=== PATIENT | female | born 1985 | race Caucasian/White ===

== ENCOUNTER 2016-12-09 19:40 | Emergency (ER) | payer SELFPAY ==
[2016-12-09 20:03] VITALS: BP 125/81; PULSE 75; TEMP 98.2; BMI 27.1
--- NOTE | 2016-12-09 21:00 | PDOC ---
History of Present Illness - General History Source: Patient Exam Limitations: No Limitations - History of Present Illness Initial Comments: 12/09/16 21:25 The patient is a 31 year old female with no significant past medical history who presents to the ED for 2 weeks of right eye redness. Patient reports she developed redness to the right eye with associated right eye pain 2 weeks ago. States using eye drops with no improvement. Patient reports she does not wear contacts or glasses. Denies trauma to the area. Denies recent travels, oral contraceptives, or tobacco use. She also denies exposure to fluids. Patient states she developed a headache today. Denies any changes in vision or dizziness. The patient denies fever, chills, cough, SOB, chest pain, and palpitations. The patient denies abdominal pain, nausea, vomiting, and diarrhea. Allergies: NKDA Social History: No alcohol, tobacco, or drug use reported. Past Surgical History: None reported PCP: None reported <Brittnee Dietz - Last Filed: 12/09/16 21:25> - General History Source: Patient <Twin Wilkes - Last Filed: 12/10/16 00:12> - General Chief Complaint: Headache Stated Complaint: EYE PROBLEM Time Seen by Provider: 12/09/16 20:54 Past History <Brittnee Dietz - Last Filed: 12/09/16 21:25> - Past Medical History Asthma: No Cancer: No Cardiac Disorders: No Diabetes: No HTN: No Seizures: No Thyroid Disease: No Other medical history: Pt denies - Psycho/Social/Smoking Cessation Hx Anxiety: No Suicidal Ideation: No Smoking History: Never smoked Have you smoked in the past 12 months: No Information on smoking cessation initiated: No Hx Alcohol Use: No Drug/Substance Use Hx: No Substance Use Type: None Hx Substance Use Treatment: No <Twin Wilkes - Last Filed: 12/10/16 00:12> - Past Medical History Allergies/Adverse Reactions: Allergies Allergy/AdvReac Type Severity Reaction Status Date / Time No Known Allergies Allergy Verified 12/09/16 20:00 Home Medications: Ambulatory Orders NK [No Known Home Medication] 12/09/16 Review of Systems - Review of Systems Able to Perform ROS?: Yes Comments:: 12/09/16 21:25 CONSTITUTIONAL: Absent: fever, no chills, no fatigue EYES: +R eye pain and redness Absent: visual changes ENT: Absent: ear pain, no sore throat CARDIOVASCULAR: Absent: chest pain, no palpitations RESPIRATORY: Absent: cough, no SOB GI: Absent: abdominal pain, no nausea, no vomiting, no constipation, no diarrhea GENITOURINARY: Absent: dysuria, no frequency, no hematuria MUSCULOSKELETAL: Absent: back pain, no arthralgia, no myalgia SKIN: Absent: rash NEURO: +headache <Brittnee Dietz - Last Filed: 12/09/16 21:25> *Physical Exam - Vital Signs Last Vital Signs Temp Pulse Resp BP Pulse Ox 98.2 F 75 18 125/81 100 12/09/16 20:01 12/09/16 20:01 12/09/16 20:01 12/09/16 20:01 12/09/16 20:01 - Physical Exam Comments: 12/09/16 21:25 GENERAL: Well-appearing, well-nourished. No apparent distress. HEENT: Normocephalic, atraumatic. PERRL, EOM intact. Conjunctival injection to the right eye in the 6 o'clock to 8 oclock area. CARDIOVASCULAR: Normal S1, S2. Regular rate and rhythm. PULMONARY: Clear to auscultation bilaterally. ABDOMEN: Soft, non-distended, non-tender. EXTREMITIES: Normal ROM in all four extremities. No gross deformities. SKIN: Warm, dry. No rash NEUROLOGICAL: No focal neurological deficits. <Brittnee Dietz - Last Filed: 12/09/16 21:25> - Vital Signs Last Vital Signs Temp Pulse Resp BP Pulse Ox 98.2 F 75 18 125/81 100 12/09/16 20:01 12/09/16 20:01 12/09/16 20:01 12/09/16 20:01 12/09/16 20:01 <Twin Wilkes - Last Filed: 12/10/16 00:12> Medical Decision Making - Medical Decision Making 12/10/16 00:11 Dr. Wilkes: The scribe's documentation has been prepared under my direction and personally reviewed by me in its entirery. I confirm that the note above accurately reflects all work, treatment, procedures, and medical decision making performed by me. <Twin Wilkes Last Filed: 12/10/16 00:12> *DC/Admit/Observation/Transfer - Attestations Scribe Attestion: 12/09/16 21:25 Documentation prepared by Brittnee Dietz, acting as medical imaging director for Twin Wilkes MD/DO. <Brittnee Dietz - Last Filed: 12/09/16 21:25> - Discharge Dispostion Admit: No <Twin Wilkes - Last Filed: 12/10/16 00:12> Diagnosis at time of Disposition: Red eye - Discharge Dispostion Disposition: HOME Condition at time of disposition: Stable - Referrals Referrals: Torsten Hatfield [Staff Physician] - - Patient Instructions Printed Discharge Instructions: DI for Red Eye Additional Instructions: Please follow up with the doctor referred to you for further evaluation for the redness of thr right eye. Avoid aspirin or Motrin for now for pain. use medication as directed. Print Language: [place]
== END 2016-12-09 22:19 | disposition home or self-care (01) ==
LOC: JER 19:40
DX: R51 Headache (principal); H57.8 Other specified disorders of eye and adnexa
CPT/HCPCS: 99281-25

== ENCOUNTER 2019-03-26 16:35 | Inpatient (IN) | payer OTHER ==
--- NOTE | 2019-03-26 17:20 | HP ---
Past Medical History - Admission History of Present Illness: 34yo @ 39.5wks by LMP/sono here with uterine contractions since 4AM. No VB/LOF. +FM Preg uncomplicated, GBS neg 03/02/19. 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: No: Alzheimer's, CVA, Dementia, Migraine, Multiple Sclerosis, Peripheral Neuropathy, Parkinson's, Seizure, Syncope, TIA, Vertigo, Other Cardiovascular: No: AFIB, Aneurysm, Aortic Insufficiency, Aortic Stenosis, CAD, CHF, Deep Vein Thrombosis, HTN, Hyperlipdemia, [place], Mitral Insufficiency, Mitral Stenosis, Murmur, Pulmonary Hypertension, Other Pulmonary: No: Asthma, Bronchitis, Cancer, COPD, O2 Dependent, Pneumonia, Previously Intubated, Pulmonary Embolus, Pulmonary Fibrosis, Sleep Apnea, Other Gastrointestinal: No: Ascites, Cancer, Constipation, Crohn's Disease, Diverticulitis, Diverticulosis, Esophageal Varices, Gastritis, GERD, GI Bleed, Hemorrhoids, Hiatal Hernia, Inflamatory Bowel Disease, Irritable Bowel Disease, Pancreatitis, Peptic Ulcer Disease, Ulcerative Colitis, Other ...: 2 ...Para: 1 ...Term: 1 ...: 0 ...Spon : 0 ...Induced : 0 ... Weeks Gestation by Dates: 39.5 ...EDC by Dates: 03/28/19 ...EDC by Sono: 03/28/19 Heme/Onc: Yes: Anemia - Past Surgical History Past Surgical History: Yes: None Hx Myomectomy: No Hx Transabdominal Cerclage: No - Smoking History Smoking history: Never smoked Have you smoked in the past 12 months: No - Alcohol/Substance Use Hx Alcohol Use: No Home Medications - Allergies Allergies/Adverse Reactions: Allergies Allergy/AdvReac Type Severity Reaction Status Date / Time No Known Allergies Allergy Verified 12/09/16 20:00 - Home Medications Home Medications: Ambulatory Orders Ferrous Sulfate [Iron] 325 mg PO DAILY 03/26/19 Prenat 115/Iron Fum/Folic/Dss [ 19 Tablet] 1 each PO DAILY 03/26/19 Physical Exam - Maternity Constitutional: Yes: Well Nourished, No Distress, Calm - Abdominal Exam/OB Presentation: Vertex Contractions: Yes Regularity: Irregular Intensity: Mild/Mod Monitor Mode: External Heart Rate Location: [facility] Category: I Accelerations: Non-Uniform Decelerations: None - Vaginal Exam/OB Vaginal Bleediing: No Speculum Exam: No Dilatation (cm): 5 Effacement (%): 90 Amniotic Membrane Status: Intact Presentation: Vertex/Position Station: -2 - Physical Exam Edema: No Assessment/Plan 34yo @ 39.5wks here in labor Admit to L&D IVFs GBS neg Cat I tracing AROM/pitocin prn Desires NITOB Willian Howard MD
[2019-03-26] MEDS ORDERED: DEXTROSE 5%-LACTATED RINGERS 1,000 ML IV SCH (17:30)
--- NOTE | 2019-03-26 17:34 | PN ---
Progress Note, Labor Vaginal Exam #1 Labor Exam Date: 03/26/19 Heart Rate (range): Cat I Dilatation: 5 Effacement (%): 90 Amniotic Membrane Status: Intact Presentation: Vertex/Position Station: -2 Remarks: Breathing well through contractions Consider AROM next exam Cat I tracing Willian Howard MD
[2019-03-26 18:00] LABS: BASO % 0.6 % (0-2.0); EOS % 0.9 % (0-4.5); HEMATOCRIT 35.7 % (32.4-45.2); HEMOGLOBIN 11.5 GM/dL (10.7-15.3); LYMPH % 20.5 % (8-40); MCH 26.7 pg (25.7-33.7); MCHC 32.3 g/dl (32.0-36.0); MEAN CELL VOLUME 82.8 fl (80-96); MEAN PLT VOLUME 10.1 fl (7.5-11.1); MONO % 7.1 % (3.8-10.2); NEUT % 70.9 % (42.8-82.8); PLATELET COUNT 209 K/MM3 (134-434); RBC 4.31 M/mm3 (3.60-5.2); RDW 18.6 % (11.6-15.6); WHITE BLOOD COUNT 6.9 K/mm3 (4.0-10.0)
[2019-03-26 18:06] VITALS: BMI 33.0
[2019-03-26 18:07] LABS: INR 0.92 (0.83-1.09); PROTHROMBIN TIME (PATIENT) 10.9 SEC (9.7-13.0)
[2019-03-26 18:09] LABS: ACTIVATED PTT 27.5 SECONDS (25.2-36.5)
[2019-03-26 18:19] LABS: BLOOD UREA NITROGEN 9.9 mg/dL (7-18); CREATININE 0.4 mg/dL (0.55-1.3)
[2019-03-26 19:45] LABS: PLATELET ESTIMATE NORMAL
[2019-03-26] MEDS ORDERED: OXYTOCIN 20 UNITS in 0.9% NS 20 UNIT/1,000 ML INFUS.BAG IV ONE (19:56)
[2019-03-26] MEDS ORDERED: LIDOCAINE HCL 1% PRESERVATIVE FREE - 30ML VIAL ONE (19:56)
--- NOTE | 2019-03-26 20:03 | PN ---
Progress Note, Labor Vaginal Exam #2 Labor Exam Date: 03/26/19 Labor Exam Time: 20:02 Heart Rate (range): Cat I Dilatation: 9 Effacement (%): 100 Amniotic Membrane Status: Intact Presentation: Vertex/Position Station: 0 Remarks: Pt getting more uncomfortable Plan for AROM Cat I tracing Willian Howard MD
[2019-03-26] MEDS ORDERED: METHYLERGONOVINE MALEATE 0.2 MG/1 ML AMP IM PRN (21:36)
[2019-03-26] MEDS ORDERED: BENZOCAINE 28 GM HEMORRHOIDAL OINTMENT TP PRN (21:36)
[2019-03-26] MEDS ORDERED: WITCH HAZEL 50% (TUCKS) 40 PAD/JAR PAD TP PRN (21:36)
[2019-03-26] MEDS ORDERED: BENZOCAINE 20% 57 GM BOTTLE TP PRN (21:36)
[2019-03-26] MEDS ORDERED: BISACODYL 10 MG SUPP.RECT RC PRN (21:36)
--- NOTE | 2019-03-26 21:36 | PN ---
Delivery - Delivery Vaginal Delivery: Shoulder/Difficult Type of Anesthesia: None Episiotomy/Laceration: Midline, 1st degree EBL (cc): 350 Delivery, Single - Stages of Labor Placenta: Yes: Spontaneous - Condition of Health Sciences Department Chair/Bell Ringer Present: Yes Infant Gender: Female Position: OA - 1 Minute Total Score: 9 5 Minutes Total Score: 9 - [place] Feeding Plan Initial Plan: Elected not to breastfeed exclusively throughout hospitalization Remarks - Remarks Remarks: Poor maternal effort with pushing, bradycardia to 90's. Decision made to proceed with VAVD. Kiwi applied, checked and cleared of vaginal tissue. With maternal effort, two pulls/contractions, vacuum removed. of VFI from direct OA. Nuchal x 1, tight, delivered through. Meconium noted prior to pushing. NICU present. Cord clamped and cut immediately. handed off. Weight pending. Apgars 5, 9. Spontaneous delivery of placenta, 2VC. First degree laceration repaired after lidocaine adminstered, with 2-0 chromic. Hemostasis noted. Mother and baby doing well. Zandra Howard MD
[2019-03-26] MEDS ORDERED: OXYTOCIN 20 UNITS in 0.9% NS 20 UNIT/1,000 ML INFUS.BAG IV SCH (21:45)
[2019-03-26] MEDS ORDERED: ACETAMINOPHEN 325 MG TABLET (FP) ONE (22:26)
[2019-03-26] MEDS ORDERED: IBUPROFEN 600 MG TABLET (FP) PO ONE (22:26)
[2019-03-26] MEDS: ACETAMINOPHEN 325 MG TABLET (FP) PO PRN (22:30)
[2019-03-26] MEDS: IBUPROFEN 600 MG TABLET (FP) PO PRN (22:30)
--- NOTE | 2019-03-27 05:25 | PN ---
Post Progress Note - Subjective Subjective: Pain controlled. Lochia c/w menses. Post Day: 1 Type of Delivery: Vacuum Assist Vag Del Vital Signs: Vital Signs Temperature 98.3 F 03/27/19 02:00 Pulse Rate 81 03/27/19 02:00 Respiratory Rate 18 03/27/19 02:00 Blood Pressure 102/65 03/27/19 02:00 O2 Sat by Pulse Oximetry (%) 100 03/26/19 22:35 Uterus: Yes: Fundus below umbilicus Abdomen/GI: Yes: Abdomen soft, Tolerating PO Lochia: Yes: Rubra Lochia, amount: Moderate Extremities: Yes: Calves non-tender Perineum: Yes: Intact Activity: Ambulating - Labs Labs: CBC WBC 6.9 K/mm3 (4.0-10.0) 03/26/19 17:00 RBC 4.31 M/mm3 (3.60-5.2) 03/26/19 17:00 Hgb 11.5 GM/dL (10.7-15.3) 03/26/19 17:00 Hct 35.7 % (32.4-45.2) D 03/26/19 17:00 MCV 82.8 fl (80-96) 03/26/19 17:00 MCH 26.7 pg (25.7-33.7) 03/26/19 17:00 MCHC 32.3 g/dl (32.0-36.0) 03/26/19 17:00 RDW 18.6 % (11.6-15.6) H 03/26/19 17:00 Plt Count 209 K/MM3 (134-434) 03/26/19 17:00 MPV 10.1 fl (7.5-11.1) 03/26/19 17:00 Absolute Neuts (auto) 4.9 K/mm3 (1.5-8.0) 03/26/19 17:00 Neutrophils % 70.9 % (42.8-82.8) 03/26/19 17:00 Neutrophils % (Manual) 69.4 % (42.8-82.8) 03/26/19 17:00 Band Neutrophils % 3.1 % 03/26/19 17:00 Lymphocytes % 20.5 % (8-40) D 03/26/19 17:00 Lymphocytes % (Manual) 19.4 % (8-40) 03/26/19 17:00 Monocytes % 7.1 % (3.8-10.2) 03/26/19 17:00 Monocytes % (Manual) 5 % (3.8-10.2) 03/26/19 17:00 Eosinophils % 0.9 % (0-4.5) 03/26/19 17:00 Eosinophils % (Manual) 0.0 % (0-4.5) 03/26/19 17:00 Basophils % 0.6 % (0-2.0) 03/26/19 17:00 Basophils % (Manual) 0.0 % (0-2.0) 03/26/19 17:00 Myelocytes % (Man) 2 % (0-2) 03/26/19 17:00 Promyelocytes % (Man) 0 % (0-2) 03/26/19 17:00 Blast Cells % (Manual) 0 % (0-0) 03/26/19 17:00 Nucleated RBC % 0 % (0-0) 03/26/19 17:00 Metamyelocytes 1 % (0-2) 03/26/19 17:00 Platelet Estimate Normal 03/26/19 17:00 Assessment/Plan 34yo s/p VAVD, PPD#1 Routine PP care PO pain control F/U AM labs D/C to home PPD#2 Willian Howard MD
[2019-03-27 07:49] LABS: BASO % 0.2 % (0-2.0); EOS % 0.2 % (0-4.5); HEMATOCRIT 32.4 % (32.4-45.2); HEMOGLOBIN 10.7 GM/dL (10.7-15.3); LYMPH % 16.8 % (8-40); MCH 27.2 pg (25.7-33.7); MCHC 33.2 g/dl (32.0-36.0); MEAN PLT VOLUME 9.6 fl (7.5-11.1); MONO % 6.6 % (3.8-10.2); NEUT % 76.2 % (42.8-82.8); PLATELET COUNT 194 K/MM3 (134-434); RBC 3.95 M/mm3 (3.60-5.2); RDW 19.2 % (11.6-15.6); WHITE BLOOD COUNT 9.5 K/mm3 (4.0-10.0)
[2019-03-27] MEDS: PRENATAL VITAMINS W/ FOLIC ACID TABLET (FP) PO SCH (10:00)
[2019-03-27] MEDS: IBUPROFEN 600 MG TABLET (FP) PO PRN (11:33)
[2019-03-27] MEDS: ACETAMINOPHEN 325 MG TABLET (FP) PO PRN (11:35)
[2019-03-27] MEDS ORDERED: SENNOSIDES/DOCUSATE COMBO (SENNA PLUS) TABLET (UD) PO PRN (22:00)
[2019-03-27 22:01] VITALS: TEMP 98.7
--- NOTE | 2019-03-28 08:01 | DS ---
Physical Examination Vital Signs: Vital Signs Temperature 98.7 F 03/27/19 22:00 Pulse Rate 88 03/27/19 22:00 Respiratory Rate 20 03/27/19 22:00 Blood Pressure 114/59 L 03/27/19 22:00 O2 Sat by Pulse Oximetry (%) 100 03/26/19 22:35 Findings/Remarks: Patient is ambulating, tolerating PO, voiding, lochia decreased, desiring to go home Constitutional: Yes: No Distress HENT: Yes: Atraumatic, Normocephalic Neck: Yes: Supple Cardiovascular: Yes: Regular Rate and Rhythm Respiratory: Yes: Regular Gastrointestinal: Yes: Soft ...Rectal Exam: Yes: Deferred Renal/: Yes: Other (deferred) Breast(s): Yes: Other (deferred) Extremities: Yes: WNL Edema: Yes Edema: LLE: Trace, RLE: Trace Integumentary: Yes: WNL Neurological: Yes: Alert, Oriented ...Motor Strength: WNL Psychiatric: Yes: Alert, Oriented Labs: CBC, BMP 03/27/19 07:07 03/26/19 17:00 Discharge Summary Reason For Visit: Labor Procedures: Principal: Vaginal delivery Hospital Course: Uncomplicated vaginal delivery and PP recovery Condition: Stable - Instructions Diet, Activity, Other Instructions: Regular Diet Referrals: Pearl Hastings CNM [Certified Nurse Book Solicitor] - Zandra Howard MD [Staff Physician] - Disposition: HOME - Home Medications Comprehensive Discharge Medication List: Ambulatory Orders Ferrous Sulfate [Iron] 325 mg PO DAILY 03/26/19 Prenat 115/Iron Fum/Folic/Dss [ 19 Tablet] 1 each PO DAILY 03/26/19
[2019-03-28] MEDS: ACETAMINOPHEN 325 MG TABLET (FP) PO PRN (08:15)
[2019-03-28] MEDS: IBUPROFEN 600 MG TABLET (FP) PO PRN (08:16)
[2019-03-28 10:56] VITALS: BP 113/73; PULSE 104
[2019-03-28] MEDS: PRENATAL VITAMINS W/ FOLIC ACID TABLET (FP) PO SCH (11:39)
== END 2019-03-28 12:00 | disposition home or self-care (01) | DRG 560 ==
LOC: JLDR 16:35 → J3W 23:10
PROVIDERS: ADMIT Obstetrics & Gynecology; ATTEND Obstetrics & Gynecology
PROC: 10D07Z6 Extraction of Products of Conception, Vacuum, Via Natural or Artificial Opening (ICD-10-PCS; principal; 2019-03-26)
PROC: 0W8NXZZ Division of Female Perineum, External Approach (ICD-10-PCS; 2019-03-26)
PROC: 0HQ9XZZ Repair Perineum Skin, External Approach (ICD-10-PCS; 2019-03-26)
DX: O70.0 First degree perineal laceration during delivery (principal); O76 Abnormality in fetal heart rate and rhythm complicating labor and delivery; Z3A.39 39 weeks gestation of pregnancy; O69.1XX0 Labor and delivery complicated by cord around neck, with compression, not applicable or unspecified; Z37.0 Single live birth
CPT/HCPCS: 36415; 59409; 80048; 85025; 85610; 85730; 86593; 86850; 86900; 86901

== ENCOUNTER 2024-01-10 13:39 | Emergency (ER) | payer OTHER ==
[2024-01-10 13:47] VITALS: BP 136/82; PULSE 79; RESP 16; TEMP 98; BMI 30.2
[2024-01-10] MEDS: SODIUM CHLORIDE 0.9% 500 ML INFUS.BAG IV ONE (14:19)
[2024-01-10 14:23] LABS: BASO % 0.5 % (0-2.0); EOS % 1.3 % (0-4.5); HEMATOCRIT 36.8 % (32.4-45.2); HEMOGLOBIN 12.6 GM/dL (10.7-15.3); LYMPH % 44.3 % (8-40); MCH 27.6 pg (25.7-33.7); MCHC 34.3 g/dl (32.0-36.0); MEAN CELL VOLUME 80.6 fl (80-96); MEAN PLT VOLUME 7.3 fl (7.5-11.1); MONO % 8.1 % (3.8-10.2); NEUT % 45.8 % (42.8-82.8); PLATELET COUNT 311 10^3/uL (134-434); RBC 4.57 M/mm3 (3.60-5.2); RDW 14.6 % (11.6-15.6); WHITE BLOOD COUNT 6.1 K/mm3 (4.0-10.0)
[2024-01-10 14:51] LABS: ALBUMIN 3.2 g/dl (3.4-5.0); CALCIUM 8.5 mg/dL (8.5-10.1)
[2024-01-10 14:53] LABS: CREATININE 0.6 mg/dL (0.55-1.3)
[2024-01-10 14:56] LABS: BILIRUBIN,TOTAL 0.3 mg/dL (0.2-1); TOT PROT 6.9 g/dl (6.4-8.2)
== END 2024-01-10 17:05 | disposition home or self-care (01) ==
LOC: JER 13:39
DX: R19.7 Diarrhea, unspecified (principal); R10.12 Left upper quadrant pain; R10.33 Periumbilical pain
CPT/HCPCS: 36415; 76705-TC; 80053; 84703; 85025; 99284-25

== ENCOUNTER 2024-08-25 16:16 | Emergency (ER) | payer OTHER ==
[2024-08-25 16:25] VITALS: BP 122/73; PULSE 80; RESP 18; TEMP 98.4; BMI 28.1
[2024-08-25] MEDS ORDERED: ACETAMINOPHEN INJECTION 100 ML ONE (17:15)
[2024-08-25] MEDS ORDERED: ONDANSETRON 4 MG/2 ML VIAL ONE (17:15)
[2024-08-25] MEDS: ACETAMINOPHEN 1000 MG/100 ML BAG IVPB ONE (17:24)
[2024-08-25] MEDS: SODIUM CHLORIDE 0.9% 500 ML INFUS.BAG IV ONE (17:24)
[2024-08-25] MEDS: ONDANSETRON 4 MG/2 ML VIAL IVPUSH ONE (17:24)
[2024-08-25 17:35] LABS: BASO % 0.2 % (0-2.0); EOS % 1.4 % (0-4.5); HEMATOCRIT 36.6 % (32.4-45.2); HEMOGLOBIN 12.4 GM/dL (10.7-15.3); LYMPH % 23.3 % (8-40); MCH 28.1 pg (25.7-33.7); MCHC 33.8 g/dl (32.0-36.0); MEAN CELL VOLUME 83.1 fl (80-96); MEAN PLT VOLUME 8.2 fl (7.5-11.1); MONO % 6.7 % (3.8-10.2); NEUT % 68.4 % (42.8-82.8); PLATELET COUNT 230 10^3/uL (134-434); RBC 4.41 M/mm3 (3.60-5.2); RDW 14.2 % (11.6-15.6); WHITE BLOOD COUNT 5.6 K/mm3 (4.0-10.0)
[2024-08-25 17:38] LABS: EPI CELLS >36 /uL (0-25.1); HYALINE CASTS 1 /uL (0-3.1); URINE APPEARANCE CLOUDY; URINE BACTERIA 1484 /uL (0-1359); URINE BILIRUBIN NEGATIVE (NEGATIVE); URINE COLOR YELLOW; URINE GLUCOSE (UA) NEGATIVE (NEGATIVE); URINE KETONE 1+ (NEGATIVE); URINE LEUK ESTERASE TRACE (NEGATIVE); URINE NITRITE NEGATIVE (NEGATIVE); URINE PROTEIN NEGATIVE (NEGATIVE); URINE RBC 13 /uL (0-23.9); URINE UROBILINOGEN 0.2 mg/dL (0.2-1.0); URINE WBC 71 /uL (0-25.8)
[2024-08-25 17:52] LABS: POTASSIUM 3.4 mmol/L (3.5-5.1)
[2024-08-25 17:55] LABS: ALBUMIN 3.4 g/dl (3.4-5.0); BLOOD UREA NITROGEN 8.6 mg/dL (7-18)
[2024-08-25 17:57] LABS: CREATININE 0.4 mg/dL (0.55-1.3)
[2024-08-25 17:59] LABS: BILIRUBIN,TOTAL 0.5 mg/dL (0.2-1); TOT PROT 6.9 g/dl (6.4-8.2)
[2024-08-25] MEDS ORDERED: CEPHALEXIN MONOHYDRATE 500 MG CAPSULE (UD) ONE (18:43)
[2024-08-25] MEDS: CEPHALEXIN MONOHYDRATE 500 MG CAPSULE (UD) PO ONE (18:45)
[2024-08-25 18:47] LABS: HIV INTERPRETATION NEGATIVE (NEGATIVE)
== END 2024-08-25 19:14 | disposition home or self-care (01) ==
LOC: JER 16:16
PROC: 3E033NZ Introduction of Analgesics, Hypnotics, Sedatives into Peripheral Vein, Percutaneous Approach (ICD-10-PCS; principal; 2024-08-25)
PROC: 3E033GC Introduction of Other Therapeutic Substance into Peripheral Vein, Percutaneous Approach (ICD-10-PCS; 2024-08-25)
DX: O23.41 Unspecified infection of urinary tract in pregnancy, first trimester (principal); O26.891 Other specified pregnancy related conditions, first trimester; R10.11 Right upper quadrant pain; R11.0 Nausea; R19.7 Diarrhea, unspecified; Z20.822 Contact with and (suspected) exposure to COVID-19; Z3A.08 8 weeks gestation of pregnancy
CPT/HCPCS: 0241U-QW; 36415; 80053; 81003; 83690; 84703; 85025; 86803; 87086; 87389; 99284-25; J0131

== ENCOUNTER 2024-09-07 11:42 | Emergency (ER) | payer OTHER ==
[2024-09-07 11:51] VITALS: BMI 27.8
[2024-09-07 17:47] VITALS: BP 101/56; PULSE 73; RESP 20; TEMP 98.8
== END 2024-09-07 19:26 | disposition home or self-care (01) ==
LOC: JER 11:42
DX: O03.4 Incomplete spontaneous abortion without complication (principal); R10.2 Pelvic and perineal pain
CPT/HCPCS: 36415; 76817-TC; 84702; 99284-25